=== PATIENT | male | born 1960 | race Two or more races ===

== ENCOUNTER 2018-02-26 12:22 | Emergency (ER) | payer MEDICAID ==
[~2018-02-26] VITALS: Ht 170.2 cm; Wt 87.1 kg
[2018-02-26 12:22] VITALS: BP 141/80
[2018-02-26] MEDS ORDERED: IBUPROFEN 600 MG TABLET PO ONE ×2 (12:36→13:00)
== END 2018-02-26 12:48 | disposition home or self-care (01) ==
LOC: ER 12:23
DX: M54.9 Dorsalgia, unspecified (principal)
CPT/HCPCS: A4606; Z7610